=== PATIENT | male | born 2000 ===

== ENCOUNTER 2024-06-26 04:07 | Emergency (ER) | payer OTHER ==
[2024-06-26] MEDS: Diphtheria,Pertussis(Acell),Tetanus Vaccine 0.5 ML Syringe IM ONE (04:35)
[2024-06-26] MEDS: Bacitracin/Neomycin/Polymyxin B Oint 0.9 GM U/D Packet TOP ONE (05:02)
== END 2024-06-26 05:04 | disposition home or self-care (01) ==
LOC: LL.ED 04:07
DX: S61.317A Laceration without foreign body of left little finger with damage to nail, initial encounter (principal); Z23 Encounter for immunization; W23.0XXA Caught, crushed, jammed, or pinched between moving objects, initial encounter; Y99.0 Civilian activity done for income or pay
CPT/HCPCS: 73140-F4; 90471; 90715; 99283-25